=== PATIENT | male | born 1985 | race Caucasian/White ===

== ENCOUNTER 2023-08-16 17:18 | Emergency (ER) | payer SELFPAY ==
[~2023-08-16] VITALS: Ht 177.8 cm; Wt 68.0 kg
[2023-08-16 17:21] VITALS: O2SAT 100
[2023-08-16 21:50] VITALS: BP 123/68; PULSE 81; RESP 16; TEMP 98
== END 2023-08-16 22:00 | disposition home or self-care (01) ==
LOC: ER 17:18
DX: M79.673 Pain in unspecified foot (principal); I10 Essential (primary) hypertension; Z88.8 Allergy status to other drugs, medicaments and biological substances
CPT/HCPCS: 99281